=== PATIENT | female | born 1970 | race African-American/Black ===

== ENCOUNTER → 2016-10-13 | Outpatient (CLI) | payer BC ==
--- NOTE | ~2016-10-13 | MY11 ---
[facility]. [facility] A Service [facility] RADIOLOGY TEXT RESULTS PATIENT: JENNIFER LOREDO LOCATION: [facility] : 72 UNIT #: [id number] AGE: [address]: YAMILEX GARNICA MD SEX: F ORDER DR: [id number] [place] [id number] O MR#: [id number] Acc #: [id number] NAME: JENNIFER LOREDO : 1970 SEX: F STUDY DATE/TIME: 10/13/2016 11:22 UNIT: [facility] ROOM: STUDY DESCRIPTION: MY Mammogram Screening Dig Armando Attending Physician: Yamilex Garnica Referring Physician: Yamilex Garnica Ordering Physician: Natalya Garnica M.D. Primary Care Physician: Yamilex Garnica MEDICAL IMAGING REPORT This report is preliminary unless electronic signature is present. EXAM Digital screening mammogram 10/13/2016 [facility] HISTORY 46-year-old woman no risk elevation. Previous augmentation. Annual screening. COMPARISON: 10/09/2011. FINDINGS Digital imaging of each breast was completed utilizing conventional projections and standard Jesús views. Review includes FDA-approved CAD device. Bilateral subglandular silicone implants are stable. The breast parenchyma is dense with a small nodular parenchymal pattern noted. Subareolar duct prominence is present bilaterally. I see no dominant mass. There are no suspicious microcalcifications and no architectural deformity. IMPRESSION Negative mammogram. Stable subglandular silicone implants. Annual screening recommended. Patients over the age of 40 are entered into a reminder system with target due date for the next mammogram. A result letter will also be sent to the patient. BIRADS: 1 - negative [facility] A Service [facility] RADIOLOGY TEXT RESULTS PATIENT: JENNIFER LOREDO LOCATION: [facility] : 72 UNIT #: [id number] AGE: [address]: YAMILEX GARNICA MD SEX: F ORDER DR: Dictated by... Yvon Young M.D. THIS IS AN ELECTRONICALLY VERIFIED REPORT Yvon Young M.D. at 10/13/2016 3:31 PM ALVINA/jessie TD: 10/13/2016 15:22 JOB #: [id number] MEDICAL IMAGING REPORT Page 1 of 1
== END | disposition home or self-care (01) ==
LOC: SMAM 09-21 15:30
DX: Z12.31 Encounter for screening mammogram for malignant neoplasm of breast (principal)
CPT/HCPCS: G0202

== ENCOUNTER → 2016-11-27 | Outpatient (CLI) | payer BC ==
--- NOTE | ~2016-11-27 | MR17 ---
[facility] A Service of [facility] RADIOLOGY TEXT RESULTS PATIENT: JENNIFER LOREDO LOCATION: [facility] : 72 UNIT #: [id number] AGE: [address]: YAMILEX GARNICA MD SEX: F ORDER DR: [id number] [address] [address] [id number] O MR#: [id number] Acc #: [id number] NAME: JENNIFER LOREDO : 1970 SEX: F STUDY DATE/TIME: 11/27/2016 14:40 UNIT: [facility] ROOM: STUDY DESCRIPTION: MR Brain WWo Contrast Attending Physician: Yamilex Garnica Referring Physician: Yamilex Garnica Ordering Physician: Natalya Garnica M.D. Primary Care Physician: Yamilex Garnica MRI CENTER REPORT This report is preliminary unless electronic signature is present. EXAM Brain MRI with and without contrast HISTORY Two episodes of syncope over the past month. Atypical headaches over the past month as well. TECHNIQUE Multiplanar imaging of the brain was performed with and without contrast. 18 mL of MultiHance was used. FINDINGS On diffusion-weighted images there is evidence of abnormal restricted diffusion. The routine brain images show mildly low-lying cerebellar tonsils but there is no evidence of beaking. This is borderline for Chiari-I malformation. Ventricular size is normal. There are several foci of bright FLAIR signal in the periventricular deep white matter. This is nonspecific. Differential diagnosis in this age group includes multiple sclerosis, previous trauma or infection/inflammation as well as chronic deep white matter ischemic change. No enhancing lesions are seen in the postcontrast images. Extraaxial structures are unremarkable. IMPRESSION Several small foci of bright FLAIR signal are seen around the ventricles. See above differential diagnosis. No enhancing lesions are seen. No acute findings. The patient also has mildly low-lying cerebellar tonsils, borderline for Chiari-I malformation. Dictated by... [facility] A Service [facility] RADIOLOGY TEXT RESULTS PATIENT: JENNIFER LOREDO LOCATION: [facility] : 72 UNIT #: [id number] AGE: [address]: YAMILEX GARNICA MD SEX: F ORDER DR: Titus Gar M.D. THIS IS AN ELECTRONICALLY VERIFIED REPORT Titus Gar M.D. at 12/01/2016 7:21 AM JULIO CESAR/radha TD: 11/29/2016 23:54 JOB #: [id number] MRI CENTER REPORT Page 1 of 1
== END | disposition home or self-care (01) ==
LOC: SMRI 13:45
DX: R55 Syncope and collapse (principal); G93.5 Compression of brain
CPT/HCPCS: 70553; A9581